=== PATIENT | female | born 1965 | race Hispanic/Latino ===

== ENCOUNTER → 2019-03-15 | Day surgery (SDC) | payer OTHER ==
[~2019-03-15] MED LIST: AMATIZA PO; AMITIZA24 MCG PO; BIOTIN1 MG PO; BUPIVACAINE 0.5%/EPI 30 ML SDV INJ ONE; CEFAZOLIN SOD 1 GM/NS 50ML 100 ML IV ONE; COLACE100 MG PO; DEXAMETHASONE SOD PHOS INJ 4 MG/ML VIAL ONE; FENTANYL CITRATE/PF 100MCG/2 ML INJ ONE; FISH OIL 1,0001 EAC2 PO; GINKGO BILOBA PO; GINKGO BILOBA40 M1 PO; GINKGO PO; HYDROCORTISONE30 GM TOP; KETOROLAC TROMETHAMINE 30 MG/ML VIAL ONE; LIDOCAINE HCL 2% LOCAL INJ 5 ML SDV VIAL INJ ONE; MIDAZOLAM HCL 2 MG/2 ML VIAL ONE; MULTI-VITAMIN1 EACH PO; MUPIROCIN22 GM TOP; NEXIUM40 MG PO; NIACIN100 MG PO; ONDANSETRON HCL INJ 2MG/ML 2ML 2 MG/ML VIAL ONE; PRAVASTATIN SOD40 MG PO; PROPOFOL IV EMULSION 10 MG/ML 20 ML VIAL ONE; SEVOFLURANE INHAL SOLN 250 ML PEN BTL ONE; SUPER COLLAGEN PO; TAZORAC30 G2 TOP; TRIAMCINOLONE A15 G1 TOP; VITAMIN D1000 UNIT PO; [UNRECOGNIZED DRUG - OTHER] PO
--- OUTSIDE RECORDS SUMMARY | 2019-03-15 07:03 | XMS REPORT | Clinical Summary ---
Author Author [facility] [employer] Organization [facility] Address Unknown Phone Unavailable Care Team Providers [facility] Name Role Phone Prakash Kendrick MD PCP Allergies No Known Allergies Medications End Date Status Medication Sig Dispensed Refills Start Date Active docusate sodium (COLACE) Take 100 mg 0 100 MG capsule by mouth. Active ergocalciferol (VITAMIN Take 50,000 0 D2) 50,000 unit capsule Units by mouth. Active pravastatin (PRAVACHOL) 0 40 MG tablet 8 Active esomeprazole (NexIUM) 40 0 MG capsule 6 Active omega-3 fatty acids-fish Take 2 g by 0 oil 300-1,000 mg capsule mouth. Active ginkgo biloba 40 mg Take 1 tablet 0 tablet by mouth. Active mupirocin (BACTROBAN) 2 % Apply 1 0 ointment application topically. Active AMITIZA 24 mcg capsule Take 24 mcg 0 by mouth 2 8 (two) times a day with meals. Active tazarotene (TAZORAC) 0.1 Apply 1 0 % gel application topically. Active triamcinolone (KENALOG) Apply 1 0 0.1 % cream application 6 topically. Active niacin (ENDUR-ACIN) 500 Take 2,000 mg 0 mg CR tablet by mouth 2 (two) times a day with meals. Active meloxicam (MOBIC) 15 mg Take 15 mg by 0 tablet mouth daily. Active ascorbic acid/collagen Take by 0 hydr (ASCORBIC mouth. ACID-COLLAGEN ORAL) Active vit B comp Take 1 tablet 0 no.6-mgtng-L-biotin by mouth (NEPHRO-BRI RX) 1-60-300 daily. mg-mg-mcg tablet Active hydrocortisone 0.5 % Apply 0 cream topically 2 (two) times a day. 08/09/2018 Discontinued lubiprostone (AMITIZA) 24 0 MCG capsule 6 08/21/2018 traMADol (ULTRAM) 50 mg Take 1-2 20 tablet 0 tablet tablets 9 (50-100 mg total) by mouth every 6 (six) hours as needed for moderate pain or severe pain for up to 5 days. 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, diagnosed 2000 Inguinal pain, left 07/28/2018 Overview: Added automatically from request for surgery [id number] Luke's esophagus 03/02/2013 Acid reflux 08/02/2011 Resolved Problems Problem Noted Date Resolved Date Left inguinal hernia 07/28/2018 08/16/2018 Overview: Added automatically from request for surgery [id number] Encounters Care Team Description Date Type Specialty Prakash Nunn MD Inguinal pain, left (Primary Dx); Gastroesophageal reflux disease, esophagitis presence not specified; Luke's esophagus without dysplasia; Other hyperlipidemia; History of mycosis fungoides 08/30/2018 Office Visit General Surgery Flako Cantu MD LAPAROSCOPIC diagnostic hernia repair 08/16/2018 Surgery General Surgery Toro Evans MD 08/16/2018 Anesthesia General Surgery Event Flako Cantu MD Inguinal pain, left; Left inguinal hernia 08/16/2018 [facility] General Surgery Encounter Flako Cantu MD Preoperative testing (Primary Dx) 08/09/2018 Pre-Admit Pre-Admission Testing Testing Appointment Flako Cantu MD Left inguinal hernia (Primary Dx); Inguinal pain, left 07/05/2018 Office Visit General Surgery Stephanie Jackson MA 04/05/2018 Telephone Obstetrics and Gynecology after 03/14/2018 Family History Medical History Relation Name Comments Heart attack Father Heart disease Father Hypertension Mother OCD Mother Relation Name Status Comments Father Mother Alive Social History Date Tobacco Use Types Packs/Day Years Used Never Smoker Smokeless Tobacco: Never Used Tobacco Cessation: Counseling Given: Yes Alcohol Use Drinks/Week oz/Week Comments No Sex Assigned at Date Recorded Not on file Industry Job Start Date Occupation Not on file Not on file Not on file Travel End Travel History Travel Start No recent travel history available. Last Filed Vital Signs Time Taken Vital Sign Reading 08/30/2018 1:50 PM [employer] Blood Pressure 104/64 08/30/2018 1:50 PM [employer] Pulse 94 08/30/2018 1:50 PM [employer] Temperature 36.4 C (97.6 F) 08/16/2018 12:35 PM [employer] Respiratory Rate 18 08/16/2018 12:35 PM [employer] Oxygen Saturation 99% - Inhaled Oxygen - Concentration 08/30/2018 1:50 PM [employer] Weight 73.8 kg (162 lb 12.8 oz) 08/30/2018 1:50 PM [employer] Height 163.8 cm (5' 4.5") 08/30/2018 1:50 PM [employer] Body Mass Index 27.51 Plan of Treatment Care Team Description Date Type Specialty Melodie Cabrera MD 0 [facility] [address] [place] [id number] [phone] 03/21/2019 Office Visit Obstetrics and Gynecology Health Maintenance Due Date Last Done Comments BREAST CANCER SCREENING 2016 COLONOSCOPY SCREENING 2016 SHINGLES VACCINES (#1) 2016 INFLUENZA VACCINE 03/02/2019 Procedures Comments Procedure Name Priority Date/Time Associated Diagnosis REPAIR, HERNIA, INGUINAL, 08/16/2018 Inguinal pain, left LAPAROSCOPIC, 11:25 AM [employer] ROBOT-ASSISTED GA AN ELECTIVE Routine 08/16/2018 ENDOTRACHEAL AIRWAY 10:22 AM [employer] Procedure Note - Hesham Jo - 08/16/2018 10:22 AM [employer] ANESTHESIA INTUBATION Performed by: Hesham Jo Authorized by: Toro Evans MD Location: OR Urgency: Elective Difficult Airway: No Anesthesio logist: Toro Evans MD Resident/C RNA/AA: Hesham Jo Performed by: resident/C RNA/AA Preoxygena vicky with 100% O2: Yes C-spine Precaution s Maintained Throughout : Yes Mask Ventilatio n: Easy mask Final Airway Type: Endotrache al airway Final Endotrache al Airway: ETT Cuffed: Yes Technique Used: Direct laryngosco py Devices/Me thods Used in Placement: Intubatin g stylet Insertion Site: Oral Blade Type: Heriberto Laryngosco pe Blade/Vide olaryngosc ope Blade Size: 3 ETT Size (mm): 7.0 Cuff at minimum occlusion pressure: Yes Measured from: Lips ETT to Lips (cm): 21 Placement Verified by: CO2 detection and direct visualizat ion Laryngosco pic view: Grade I - full view of glottis Rapid Sequence Induction (RSI): No Modified RSI: No Number of Attempts at Approach: 1 HCG QUALITATIVE, URINE STAT 08/16/2018 SCREEN 9:09 AM [employer] ECG 12-LEAD Routine 08/09/2018 Preoperative testing 2:29 PM [employer] after 03/14/2018 Results * hCG qualitative, urine screen (08/16/2018 9:09 AM [employer] SU[employer] ASS[employer]IATE) hCG Negative Negative [place] qualitative, Comment: [facility] urine The manufacturers stated [facility] sensitivity of HcG test for serum is >/=10 mIU/ml and urine is >/=20mIU/ml. Specimen Urine Performing Organization Address City/[facility] Phone Number [facility] DE[facility] OF [address] [place] [address] [place] [address] PATHOLOGY AND GENOMIC MEDICINE [facility] [id number] [place] [address] [place] [address] [facility] * ECG 12 lead (08/09/2018 2:29 PM [employer]) Ventricular 68 [facility] rate Atrial rate 68 [facility] GA interval 146 [facility] QRSD interval 78 [facility] QT interval 392 [facility] QTC interval 416 [facility] P axis 1 50 [facility] QRS axis 1 27 [facility] T wave axis 26 [facility] EKG impression Normal sinus rhythm-Normal [facility] ECG-No previous ECGs available- Specimen Narrative Performed At Performing Organization Address City/State/Zipcode Phone Number [facility] M[facility] [address] [place] [address] after 03/14/2018 Insurance Type Payer Benefit Subscriber ID Effective Phone Address Plan / Dates Group HMO AETNA AETNA xxxxxxxxxx [id number] HMO,POS,EP resent O, MC/EC Advance Directives Patient has advance care planning documents on file. For more information, alecia adrian contact: Daniel Shetty [address] [place] [address]
[2019-03-15 11:20] VITALS: BP 120/57
--- NOTE | 2019-03-16 15:13 | Operative Report ---
DATE OF PROCEDURE: 03/15/2019 SURGEON: Daniel Becerra MD PREOPERATIVE DIAGNOSES: Right knee medial meniscus tear, right knee degenerative joint disease of the knee. POSTOPERATIVE DIAGNOSES: Right knee medial meniscus tear, right knee degenerative joint disease of the knee. OPERATIONS AND PROCEDURES PERFORMED: The patient underwent a right knee examination under anesthesia, right knee arthroscopy, right knee partial medial meniscectomy, right knee chondroplasty of the patella, the trochlea, the medial femoral condyle, the medial tibial plateau, lateral femoral condyle, and lateral tibial plateau. ASSITANT: Margaret Chauhan. ANESTHESIA: General endotracheal intubation anesthesia. IV FLUIDS: Per the anesthesia record. BRIEF DESCRIPTION OF THE PATIENT'S OPERATIVE PROCEDURE: Ms. Bojorquez was taken to the operating room, placed in supine position on the operating table. Following induction of general anesthesia as well as the endotracheal intubation, the patient's right lower extremity was examined under anesthesia. She was found to have a mild effusion within the knee joint, but otherwise ligamentously stable knee. The patient's lower extremity was prepped and draped in standard surgical fashion. A two-port technique used to provide this patient arthroscopic evaluation of the knee joint. Examination of suprapatellar pouch and medial lateral gutters found no evidence of loose bodies. There was however evidence of chondromalacia of the patella and trochlear surfaces. The scope was advanced in the medial compartment. Examination of the medial compartment demonstrated a torn medial meniscus. There was also chondromalacia of the articulating surfaces. A combination of biting forceps and motorized shaver were used to resect the torn portion of meniscus. A motorized shaver was also used to provide a chondroplasty of the medial femoral condyle and medial tibial plateau. Scope was then advanced to the intercondylar notch. The anterior cruciate ligament was identified and found to be intact. Scope was then advanced into lateral compartment and chondromalacia of the articulating surfaces were encountered. Chondroplasty of the lateral femoral condyle and lateral tibial plateau was performed at this time. The scope was then placed in suprapatellar pouch and chondroplasties of the patella and trochlea were performed. The knee was deflated with sterile normal saline. Each of the portal sites were closed using 4-0 nylon suture. The portal sites as well as the knee itself were injected with 0.5% Marcaine with epinephrine. Sterile dressings were applied. The patient was awakened and taken to Postanesthesia Care Unit in stable condition. MD LIN Bae/MARGARET /[id number]
== END | disposition home or self-care (01) ==
LOC: OR 06:52
PROVIDERS: ATTEND Specialist
DX: S83.241A Other tear of medial meniscus, current injury, right knee, initial encounter (principal); M94.261 Chondromalacia, right knee; M17.0 Bilateral primary osteoarthritis of knee; K21.9 Gastro-esophageal reflux disease without esophagitis; K22.70 Barrett's esophagus without dysplasia; X58.XXXA Exposure to other specified factors, initial encounter; Y93.9 Activity, unspecified
CPT/HCPCS: 29881; 81025; 93005; J0690; J1100; J1885; J2001; J2250; J2405; J2704; J3010